=== PATIENT | female | born 1995 | race Caucasian/White ===

== ENCOUNTER 2018-11-15 21:37 | Outpatient (CLI) | payer MEDICAID ==
[2018-11-15 22:25] LABS: APPEARANCE,URINE CLEAR; BILIRUBIN,URINE NEGATIVE (NEGATIVE); COLOR,URINE YELLOW; GLUCOSE, URINE NEGATIVE (NEGATIVE); KETONES,URINE NEGATIVE (NEGATIVE); LEUKOCYTE ESTERASE,URINE NEGATIVE (NEGATIVE); NITRITE,URINE NEGATIVE (NEGATIVE); PROTEIN,URINE NEGATIVE (NEGATIVE); URINE SPECIFIC GRAVITY 1.025
[2018-11-15 22:45] LABS: URINE AMPHETAMINES SCREEN NEGATIVE; URINE BARBITURATES SCREEN NEGATIVE; URINE BENZODIAZEPINES SCREEN NEGATIVE; URINE COCAINE SCREEN NEGATIVE; URINE MARIJUANA (THC) SCREEN NEGATIVE; URINE METHADONE SCREEN NEGATIVE; URINE PHENCYCLIDINE SCREEN NEGATIVE
--- NOTE | 2018-11-16 00:01 | RADIOLOGY REPORT (SQ) ---
EXAM DESCRIPTION: US LIMITED COMPLETED DATE/TME: 11/15/2018 00:00 CLINICAL HISTORY: 23 years Female, Cramping 20w5d Comparison: None. TECHNIQUE/LIMITATION: Targeted OB sonogram for requested parameters only. FINDINGS: Single IUP Cardiac activity: 153-bpm. LVP: 5.3-cm Placenta: Posterior.. No demonstrated abruption or previa. Presentation: Breech. Cervical length: 3.9-cm. Closed appearance. IMPRESSION: Targeted OB sonogram for requested parameters
== END 2018-11-16 00:05 | disposition home or self-care (01) ==
LOC: LC 21:37
PROVIDERS: ATTEND Obstetrics & Gynecology
PROC: 4A1HXCZ Monitoring of Products of Conception, Cardiac Rate, External Approach (ICD-10-PCS; principal; 2018-11-15)
DX: O47.02 False labor before 37 completed weeks of gestation, second trimester (principal); Z3A.21 21 weeks gestation of pregnancy
CPT/HCPCS: 76815; 80307; 81001

== ENCOUNTER 2019-03-14 00:03 | Outpatient (CLI) | payer MEDICAID ==
[2019-03-14] MEDS ORDERED: ONDANSETRON 4 MG TAB.RAPDIS ONE (00:34)
[2019-03-14 00:45] LABS: APPEARANCE,URINE CLEAR; BILIRUBIN,URINE NEGATIVE (NEGATIVE); COLOR,URINE YELLOW; GLUCOSE, URINE NEGATIVE (NEGATIVE); KETONES,URINE 80 mg/dL (NEGATIVE); LEUKOCYTE ESTERASE,URINE SMALL (NEGATIVE); NITRITE,URINE NEGATIVE (NEGATIVE); PROTEIN,URINE NEGATIVE (NEGATIVE); URINE SPECIFIC GRAVITY 1.017
[2019-03-14 01:00] LABS: URINE AMPHETAMINES SCREEN NEGATIVE; URINE BARBITURATES SCREEN NEGATIVE; URINE BENZODIAZEPINES SCREEN NEGATIVE; URINE COCAINE SCREEN NEGATIVE; URINE MARIJUANA (THC) SCREEN NEGATIVE; URINE METHADONE SCREEN NEGATIVE; URINE PHENCYCLIDINE SCREEN NEGATIVE
--- NOTE | 2019-03-14 02:00 | Non Stress Test Report ---
Non Stress Test Datetime Report Generated by CPN: 03/14/2019 02:00 DEMOGRAPHIC EGA NST: 37.5 INDICATION Indication for Study (NST) Other: lc MONITORING Monitor Explained: Monitor Explained; Test Explained; Patient Verbalized Understanding Time on Monitor: 03/14/2019 00:22 Time off Monitor: 03/14/2019 01:35 NST Duration: 73 NST INTERVENTIONS NST Interventions: PO Hydration; Reposition Patient Physician Notified NST: Dr. Lao BABY A: [id number] BABY A Movement : Present Contraction Frequency : 1.5-3 FHR Baseline : 160 Accelerations : 15X15 Decelerations : None Variability : Moderate 6-25bpm NST Review: Meets Criteria for Reactive NST NST Review and Verified By : SAMANTHA Ni Results: Reactive NST REPORT Report Trigger: Send Report
== END 2019-03-14 01:35 | disposition home or self-care (01) ==
LOC: LC 00:03
PROVIDERS: ATTEND Obstetrics & Gynecology Gynecology
PROC: 4A1HXCZ Monitoring of Products of Conception, Cardiac Rate, External Approach (ICD-10-PCS; principal; 2019-03-14)
DX: O47.1 False labor at or after 37 completed weeks of gestation (principal); R11.2 Nausea with vomiting, unspecified; Z3A.37 37 weeks gestation of pregnancy
CPT/HCPCS: 59025; 81005; 80307; 84112; S0119

== ENCOUNTER 2019-03-31 01:51 | Inpatient (IN) | payer MEDICAID ==
[2019-03-31 02:48] LABS: APPEARANCE,URINE SLIGHTLY-CLOUDY; BILIRUBIN,URINE NEGATIVE (NEGATIVE); COLOR,URINE YELLOW; GLUCOSE, URINE NEGATIVE (NEGATIVE); KETONES,URINE NEGATIVE (NEGATIVE); LEUKOCYTE ESTERASE,URINE SMALL (NEGATIVE); NITRITE,URINE NEGATIVE (NEGATIVE); PROTEIN,URINE 30 mg/dL (NEGATIVE); URINE SPECIFIC GRAVITY 1.024
[2019-03-31] MEDS ORDERED: RINGERS SOLUTION,LACTATED 1,000 ML IV ONE (02:57)
[2019-03-31] MEDS ORDERED: RINGERS SOLUTION,LACTATED 1,000 ML IV PRN (02:57)
[2019-03-31] MEDS ORDERED: OXYTOCIN/NORMAL SALINE 20 UNIT/1,000 ML RTUINJ IV PRN ×2 (02:58→17:15)
[2019-03-31 03:03] LABS: URINE AMPHETAMINES SCREEN NEGATIVE; URINE BARBITURATES SCREEN NEGATIVE; URINE BENZODIAZEPINES SCREEN NEGATIVE; URINE COCAINE SCREEN NEGATIVE; URINE MARIJUANA (THC) SCREEN NEGATIVE; URINE METHADONE SCREEN NEGATIVE; URINE PHENCYCLIDINE SCREEN NEGATIVE
[2019-03-31 03:33] LABS: ABSOLUTE EOSINOPHILS # (AUTO) 0.2 10^3/uL (0.0-0.6); ABSOLUTE LYMPHOCYTES (AUTO) 1.9 10^3/uL (0.5-4.7); ABSOLUTE MONOCYTES (AUTO) 0.9 10^3/uL (0.1-1.4); ABSOLUTE NEUT (AUTO) 6.6 10^3/uL (1.7-8.2); BASOPHILS % (AUTO) 0.5 % (0-2); EOSINOPHILS % (AUTO) 2.4 % (0-6); HEMATOCRIT 28.6 % (36.0-47.0); HEMOGLOBIN 9.4 g/dL (12.0-15.5); LYMPHOCYTES % (AUTO) 19.3 % (13-45); MEAN CORPUSCULAR HEMOGLOBIN 24.1 pg (27.0-33.4); MEAN CORPUSCULAR HGB CONC 32.9 g/dL (32.0-36.0); MEAN CORPUSCULAR VOLUME 73 fl (80-97); MONOCYTES % (AUTO) 9.1 % (3-13); PLATELET COUNT 219 10^3/uL (150-450); RED CELL DISTRIBUTION WIDTH 16.6 % (11.5-14.0); SEGMENTED NEUTROPHILS % (AUTO) 68.7 % (42-78); TOTAL CELLS COUNTED % (AUTO) 100 %; WHITE BLOOD COUNT 9.7 10^3/uL (4.0-10.5)
[2019-03-31] MEDS ORDERED: OXYTOCIN 10 UNIT/ML VIAL ONE ×2 (05:57→12:40)
[2019-03-31] MEDS ORDERED: MISOPROSTOL 0.2 MG TABLET ONE ×2 (05:58→12:40)
[2019-03-31] MEDS ORDERED: LIDOCAINE 1% INJ-PF (10 MG/ML) 30 ML SDV ONE ×2 (05:58→12:41)
[2019-03-31] MEDS ORDERED: OXYTOCIN/NORMAL SALINE 0 UNIT/0 ML RTUINJ ONE (05:58)
--- NOTE | 2019-03-31 06:34 | Admission Physical ---
Datetime Report Generated by CPN: 03/31/2019 06:33 CURRENT ADMISSION Chief Complaint: Suspected Ruptured Membranes Chief Complaint Other: "my water broke at 12:30 am" Indication for Induction: Not Applicable Admit Impression : Term, Intrauterine ; No Active Labor; Ruptured Membranes Admit Plan: Admit to Unit; Initiate Labor Augmentation Protocol ALLERGIES Medication Allergies: No Medication Allergies: No Known Allergies (03/14/2019) Latex: No Latex Allergies OBSTETRICAL HISTORY EDC: 03/30/2019 00:00 : 2 Para: 0 Cesareans: 0 Gestational Diabetes: No Rh Sensitization: No Incompetent Cervix: No TIANNA: No Infertility: No ART Treatment: No Uterine Anomaly: No IUGR: No Hx Previous C/S: No Macrosomia: No Hx Loss/Stillborn: No PIH: No Hx : No Placenta Previa/Abruption: No Depression/PP Depression: No PTL/PROM: No Post Hemorrhage: No Current Procedures: Ultrasound Obstetrical History Comments: G1- 5 weeks, miscarriage in Dec 18 G2-Current SEE RECORDS Alcohol: No Marijuana : No Cocaine: No Other Illicit Drugs: No Cigarettes: Former Smoker. [id number] MEDICAL HISTORY Diabetes: No Blood Transfusion: No Pulmonary Disease (Asthma, TB): No Breast Disease: No Hypertension: No Fabric Stretcher Surgery: No Heart Disease: No Hosp/Surgery: No Autoimmune Disorder: No Anesthetic Complications: No Kidney Disease: No Abnormal Pap Smear: No Neuro/Epilepsy: No Psychiatric Disorders: No Other Medical Diseases: No Hepatitis/Liver Disease: No Significant Family History: No Varicosities/Phlebitis: No Trauma/Violence : No Thyroid Dysfunction: No INFECTIOUS HISTORY Gonorrhea: No Genital Herpes: No Chlamydia: Yes Tuberculosis: No Syphilis: No Hepatitis: No HIV/AIDS Exposure: No Rash or Viral Illness: No HPV: No PHYSICAL EXAM General: Normal HEENT: Normal Neurologic: Normal Thyroid: Normal Heart: Normal Lungs: Normal Breast: Normal Back: Normal Abdomen: Normal Genitourinary Exam: Normal Extremities: Normal DTRs: Normal Pelvic Type: Adequate Vital Signs: Reviewed; Within Normal Limits VAGINAL EXAM Dilatation: 2-3 Effacement: 50 Station: -2 MEMBRANES Membranes: Ruptured Amniotic Fluid Color: Bloody FETUS A EGA: 40.1 Monitoring: External US FHR- Baseline: 120s Accelerations: 15X15 Decelerations: None FHR Category: Category I Admit Comment: presents to L_D c/o ruptire of membranes at 0030. She reports good movement. She is GBS Neg. She has no other co-morbidities. PLANS FOR LABOR AND DELIVERY Labor and Delivery: None Pain Management: Epidural Feeding Preference: Breast Benefit of Breast Feed Discussed: Yes Circumcision: Yes INFORMED CONSENT Signature: with User ID: [email or web address]
[2019-03-31] MEDS ORDERED: EPHEDRINE SULFATE INJ 50 MG/1 ML AMPULE ONE (12:36)
[2019-03-31] MEDS ORDERED: FENTANYL/BUPIVACAINE/NS/PF 300 MCG/150 ML RTUINJ EPI ONE (12:37)
[2019-03-31] MEDS ORDERED: BUPIVACAINE HCL 0.25 % INJ/PF (2.5 MG/1 ML) 30 ML VIAL ONE (12:37)
[2019-03-31] MEDS ORDERED: OXYTOCIN/NORMAL SALINE 20 UNIT/1,000 ML RTUINJ ONE (12:41)
[2019-03-31] MEDS ORDERED: GLYCERIN/WITCH HAZEL LEAF 1 EACH MED..WIPE TP PRN (17:15)
[2019-03-31] MEDS ORDERED: BENZOCAINE/MENTHOL AEROSOL SPRAY 56 ML TOP PRN (17:15)
[2019-03-31] MEDS ORDERED: ZOLPIDEM TARTRATE 5 MG TABLET PO PRN (17:15)
[2019-03-31] MEDS ORDERED: PSEUDOEPHEDRINE HCL 30 MG TABLET PO PRN (17:15)
[2019-03-31] MEDS ORDERED: PROMETHAZINE HCL 25 MG SUPP.RECT PR PRN (17:15)
[2019-03-31] MEDS ORDERED: PROMETHAZINE HCL 25 MG TABLET PO PRN (17:15)
[2019-03-31] MEDS ORDERED: ACETAMINOPHEN 650 MG SUPP.RECT PR PRN (17:15)
[2019-03-31] MEDS ORDERED: PROMETHAZINE HCL INJ 25 MG/1 ML VIAL IV PRN (17:15)
[2019-03-31] MEDS ORDERED: MEASLES,MUMPS&RUBELLA VACC/PF 0.5 ML VIAL SUBCUT PRN (17:15)
[2019-03-31] MEDS ORDERED: DIBUCAINE 1% OINTMENT 28 GM TP PRN (17:15)
[2019-03-31] MEDS ORDERED: MAGNESIUM HYDROXIDE SUSP 30 ML UDCUP PO PRN (17:15)
[2019-03-31] MEDS ORDERED: NA PHOS,M-B/NA PHOS,DI-BA (ADULT) 133 ML ENEMA PR PRN (17:15)
[2019-03-31] MEDS ORDERED: ACETAMINOPHEN WITH CODEINE #3 TABLET PO PRN ×2 (17:15)
[2019-03-31] MEDS ORDERED: DIPH/PERTUSS(ACELL)/TETANUS VAC/PF 0.5 ML SYR (>=10YO) IM PRN (17:15)
[2019-03-31] MEDS ORDERED: DIPHENHYDRAMINE HCL 25 MG CAPSULE PO PRN (17:15)
[2019-03-31] MEDS ORDERED: FAMOTIDINE 20 MG TABLET ONE (21:41)
[2019-03-31] MEDS: DOCUSATE SODIUM 100 MG CAPSULE PO SCH (21:55)
[2019-03-31] MEDS: FERROUS SULFATE 325 MG TABLET PO SCH (21:55)
[2019-03-31] MEDS: IBUPROFEN 800 MG TABLET PO SCH (21:55)
[2019-03-31] MEDS: FAMOTIDINE 20 MG TABLET PO SCH (22:08)
[2019-04-01] MEDS: IBUPROFEN 800 MG TABLET PO SCH ×3 (05:37→18:12)
[2019-04-01 06:59] LABS: HEMATOCRIT 23.4 % (36.0-47.0); MEAN CORPUSCULAR HEMOGLOBIN 23.8 pg (27.0-33.4); MEAN CORPUSCULAR HGB CONC 32.8 g/dL (32.0-36.0); MEAN CORPUSCULAR VOLUME 73 fl (80-97); PLATELET COUNT 195 10^3/uL (150-450); RED BLOOD COUNT 3.22 10^6/uL (3.72-5.28); RED CELL DISTRIBUTION WIDTH 16.5 % (11.5-14.0); WHITE BLOOD COUNT 13.7 10^3/uL (4.0-10.5)
[2019-04-01 07:01] LABS: HEMOGLOBIN 7.7 g/dL (12.0-15.5)
--- NOTE | 2019-04-01 09:32 | PDOC PROGRESS REPORT ---
Subjective-OB Progress Note for:: 04/01/19 Subjective: reports bleeding slowing, pain controlled with current meds. denies sx of anemia except felt dizzy when she stood up yesterday. offered iron infusion-declines. instructed to report headache, ringing in ears, dizziness, feeling like she is going to pass out, extreme fatigue. pt voiced understanding. Physical Exam (OB) Vital Signs: Intake & Output 03/31/19 04/01/19 04/02/19 06:59 06:59 06:59 Weight 68.8 kg - Abdomen Stool: Yes Fundal Description: Midline Fundal Height: u/u - u/2 - Abdominal Distension: No distension Tenderness: Nontender - Extremities Lower extremities: Genoveva's sign - neg Calf: Normal, Nontender Objective-Diagnostic Laboratory: 04/01/19 06:30 04/01/19 06:30 WBC 13.7 H RBC 3.22 L Hgb 7.7 L Hct 23.4 L MCV 73 L MCH 23.8 L MCHC 32.8 RDW 16.5 H Plt Count 195 Assessment and Plan(PN) - Assessment and Plan (1) Normal vaginal delivery Is this a current diagnosis for this admission?: Yes (2) Anemia due to acute blood loss Is this a current diagnosis for this admission?: Yes (3) Chlamydia infection during Is this a current diagnosis for this admission?: Yes - Time Spent with Patient Time with patient: Less than 15 minutes Medications reviewed and adjusted accordingly: Yes - Disposition Anticipated Discharge: Home Within: within 24 hours
[2019-04-01] MEDS ORDERED: SENNOSIDES/DOCUSATE 8.6-50 MG 1 EACH TABLET ONE (10:18)
[2019-04-01] MEDS ORDERED: FERROUS SULFATE 325 MG TABLET PO ONE (10:18)
[2019-04-01] MEDS ORDERED: DOCUSATE SODIUM 100 MG CAPSULE ONE (10:18)
[2019-04-01] MEDS ORDERED: IBUPROFEN 800 MG TABLET ONE (10:18)
[2019-04-01] MEDS ORDERED: FAMOTIDINE 20 MG TABLET ONE (10:22)
[2019-04-01] MEDS: PRENATAL VITAMIN W DHA CAPSULE PO SCH (10:27)
[2019-04-01] MEDS: SENNOSIDES/DOCUSATE 8.6-50 MG 1 EACH TABLET PO SCH (10:27)
[2019-04-01] MEDS: FERROUS SULFATE 325 MG TABLET PO SCH ×2 (10:27→18:12)
[2019-04-01] MEDS: FAMOTIDINE 20 MG TABLET PO SCH ×2 (10:28→21:50)
[2019-04-01] MEDS: DOCUSATE SODIUM 100 MG CAPSULE PO SCH ×2 (10:28→18:12)
--- NOTE | 2019-04-01 13:35 | Delivery Summary ---
Del Sum A-C Datetime Report Generated by CPN: 04/01/2019 13:35 DELIVERY PERSONNEL DELIVERY PERSONNEL: [id number] Delivery Doctor:: Ricco Lewis MD Labor and Delivery Nurse:: Angelica Trotter RN Nursery Nurse:: Albina Mario RN Square Shear Operator/SERVICE CONTROL OPERATOR: Milagros Cox, ST [employer] Operator/SERVICE CONTROL OPERATOR: Katya Schreiber Patience, PATTERNMAKER PRESSURE CAST MATERNAL INFORMATION Delivery Anesthesia: Epidural Medications After Delivery: Pitocin Bolus-Please Comment Meds After Delivery Comment: pitocin 20 units in 1 L NS bolusing per order Estimated Blood Loss (ml): 100 Delivery QBL: 0 Maternal Complications: None LABOR SUMMARY EDC: 03/30/2019 00:00 No. Babies in Womb: 1 Attempted: No Labor Anesthesia: Epidural LABOR INFORMATION Reason for Induction: Not Applicable Onset of Labor: 03/31/2019 06:24 Complete Dilatation: 03/31/2019 16:45 Oxytocin: Augmentation Group B Beta Strep: negative Antibiotics # of Doses: 0 Antibiotics Time of Last Dose: n/a Name of Antibiotic Given: n/a Steroids Given: None Reason Steroids Not Administered: Not Applicable MEMBRANES Membranes Rupture Method: Artificial Rupture of Membranes: 03/31/2019 00:30 Length of Rupture (hr): 17.27 Amniotic Fluid Color: Clear Amniotic Fluid Amount: Small Amniotic Fluid Odor: None STAGES OF LABOR Stage 1 hr: 10 Stage 1 min: 21 Stage 2 hr: 1 Stage 2 min: 1 Stage 3 hr: 0 Stage 3 min: 3 Total Time in Labor hr: 11 Total Time in Labor min: 25 VAGINAL DELIVERY Episiotomy: None Laceration #1: Vaginal Laceration Extension #1: N/A Laceration #2: Vaginal Laceration Extension #2: N/A Laceration #3: None Laceration Extension #3: N/A Laceration Repair: Yes Laceration Repair Note: The patient had bilateral labial lacerations each repaired with 3-0 chromic suture. Sponge Count Correct: Vaginal Sweep Performed Sharps Count Correct: Yes CSECTION DELIVERY Primary Indication: N/A Secondary Indication: N/A CSection Incidence: N/A Labor: N/A Elective: N/A CSection Incision: N/A BABY A INFORMATION Delivery Date/Time: 03/31/2019 17:46 Method of Delivery: Vaginal Born in Route : No : N/A Forceps: N/A Vacuum Extraction: N/A Shoulder Dystocia : No PRESENTATION/POSITION BABY A Presentation: Cephalic Cephalic Presentation: Vertex Vertex Position: Right Occipital Anterior Breech Presentation: N/A PLACENTA INFORMATION BABY A Placenta Delivery Time : 03/31/2019 17:49 Placenta Method of Delivery: Spontaneous Placenta Status: Delivered SCORES BABY A Heart Rate 1 min: >100 bpm Resp Effort 1 min: Good Cry Reflex Irritability 1 min: No Response Muscle Tone 1 min: Flaccid Color 1 min: Body [place], Extremities Blue Resuscitation Effort 1 min: Tactile Stimulation SCORE 1 MIN: 5 Heart Rate 5 min: >100 bpm Resp Effort 5 min: Good Cry Reflex Irritability 5 min: Grim[place] Muscle Tone 5 min: Flaccid Color 5 min: Body [place], Extremities Blue Resuscitation Effort 5 min: Tactile Stimulation SCORE 5 MIN: 6 Heart Rate 10 min: >100 bpm Resp Effort 10 min: [place] Reflex Irritability 10 min: [place]ace Muscle Tone 10 min: Some Flexion of Extremities Color 10 min: Body [place], Extremities Blue Resuscitation Effort 10 min: Tactile Stimulation; PPV/NCPAP SCORE 10 MIN: 7 INFORMATION BABY A Gestational Age at Delivery: 40.1 Gestational Status: Full Term- 39- 40.6 Weeks Outcome : Liveborn Condition : Stable Sex: Male IDENTIFICATION BABY A Verification Date/Time: 03/31/2019 17:46 ID Band Number: [id number] Mother's Name Verified: Yes Infant RN Verifying Infant: Tara Shelbi CORD INFORMATION BABY A No. Cord Vessels: 3 Nuchal Cord : Around Neck x1, Loose Infant Suction: Mouth; Nose ASSESSMENT BABY A Physical Findings at Delivery: Within Normal Limits Respirations: Grunting BABY B INFORMATION : N/A SIGNATURES Signature: with User ID: [email or web address]
[2019-04-02] MEDS: IBUPROFEN 800 MG TABLET PO SCH ×2 (01:49→10:04)
[2019-04-02 08:12] VITALS: BP 116/73
[2019-04-02 08:21] LABS: ABSOLUTE BASOPHILS # (AUTO) 0.1 10^3/uL (0.0-0.2); ABSOLUTE EOSINOPHILS # (AUTO) 0.3 10^3/uL (0.0-0.6); ABSOLUTE LYMPHOCYTES (AUTO) 1.8 10^3/uL (0.5-4.7); ABSOLUTE MONOCYTES (AUTO) 0.7 10^3/uL (0.1-1.4); ABSOLUTE NEUT (AUTO) 6.4 10^3/uL (1.7-8.2); BASOPHILS % (AUTO) 0.7 % (0-2); EOSINOPHILS % (AUTO) 3.5 % (0-6); HEMATOCRIT 22.1 % (36.0-47.0); LYMPHOCYTES % (AUTO) 19.5 % (13-45); MEAN CORPUSCULAR HEMOGLOBIN 24.1 pg (27.0-33.4); MEAN CORPUSCULAR HGB CONC 32.7 g/dL (32.0-36.0); MEAN CORPUSCULAR VOLUME 74 fl (80-97); MONOCYTES % (AUTO) 7.2 % (3-13); PLATELET COUNT 174 10^3/uL (150-450); RED CELL DISTRIBUTION WIDTH 17.1 % (11.5-14.0); SEGMENTED NEUTROPHILS % (AUTO) 69.1 % (42-78); TOTAL CELLS COUNTED % (AUTO) 100 %; WHITE BLOOD COUNT 9.2 10^3/uL (4.0-10.5)
[2019-04-02 08:30] LABS: HEMOGLOBIN 7.2 g/dL (12.0-15.5)
--- NOTE | 2019-04-02 09:15 | PDOC DISCHARGE SUMMARY ---
Impression - Admit/DC Date/PCP Admission Date/Primary Care Provider: 03/31/19 02:54 KHUSHI HILLIARD MD Discharge Date: 04/02/19 - Discharge Diagnosis (1) Normal vaginal delivery Is this a current diagnosis for this admission?: Yes (2) Anemia due to acute blood loss Is this a current diagnosis for this admission?: Yes (3) Chlamydia infection during Is this a current diagnosis for this admission?: Yes - Additional Information Discharge Diet: Regular Discharge Activity: Balance Activity w/Rest, Pelvic Rest Referrals: KHUSHI HILLIARD MD [Primary Care Provider] - Prescriptions: Ibuprofen [Motrin 800 mg Tablet] 800 mg PO Q8HP PRN #60 tablet PRN Reason: Home Medications: 95/Iron Fum/Folic/Dha [ + Dha Combo Pack] 1 cap PO DAILY 11/15/18 Ferrous Sulfate [Ferosul] 325 mg PO BID 03/31/19 Ibuprofen [Motrin 800 mg Tablet] 800 mg PO Q8HP PRN #60 tablet 04/02/19 HPI Gestational Age: 40+1 Reason(s) for Admission: Induction of Labor, PROM Procedures: NST Intrapartum Procedure(s): Spontaneous Vaginal Delivery Complication(s): Laceration-Vaginal Laceration-Degree: 1st Results Laboratory Results: WBC 9.2 10^3/uL (4.0-10.5) 04/02/19 07:55 RBC 3.00 10^6/uL (3.72-5.28) L 04/02/19 07:55 Hgb 7.2 g/dL (12.0-15.5) L 04/02/19 07:55 Hct 22.1 % (36.0-47.0) L 04/02/19 07:55 MCV 74 fl (80-97) L 04/02/19 07:55 MCH 24.1 pg (27.0-33.4) L 04/02/19 07:55 MCHC 32.7 g/dL (32.0-36.0) 04/02/19 07:55 RDW 17.1 % (11.5-14.0) H 04/02/19 07:55 Plt Count 174 10^3/uL (150-450) 04/02/19 07:55 Lymph % (Auto) 19.5 % (13-45) 04/02/19 07:55 [place] % (Auto) 7.2 % (3-13) 04/02/19 07:55 Eos % (Auto) 3.5 % (0-6) 04/02/19 07:55 Baso % (Auto) 0.7 % (0-2) 04/02/19 07:55 Absolute Neuts (auto) 6.4 10^3/uL (1.7-8.2) 04/02/19 07:55 Absolute Lymphs (auto) 1.8 10^3/uL (0.5-4.7) 04/02/19 07:55 Absolute Monos (auto) 0.7 10^3/uL (0.1-1.4) 04/02/19 07:55 Absolute Eos (auto) 0.3 10^3/uL (0.0-0.6) 04/02/19 07:55 Absolute Basos (auto) 0.1 10^3/uL (0.0-0.2) 04/02/19 07:55 Seg Neutrophils % 69.1 % (42-78) 04/02/19 07:55 Urine Color YELLOW 03/31/19 02:05 Urine Appearance SLIGHTLY-CLOUDY 03/31/19 02:05 Urine pH 6.0 (5.0-9.0) 03/31/19 02:05 Ur Specific [place] 1.024 03/31/19 02:05 Urine Protein 30 mg/dL (NEGATIVE) H 03/31/19 02:05 Urine Glucose (UA) NEGATIVE mg/dL (NEGATIVE) 03/31/19 02:05 Urine Ketones NEGATIVE mg/dL (NEGATIVE) 03/31/19 02:05 Urine Blood NEGATIVE (NEGATIVE) 03/31/19 02:05 Urine Nitrite NEGATIVE (NEGATIVE) 03/31/19 02:05 Urine Bilirubin NEGATIVE (NEGATIVE) 03/31/19 02:05 Urine Urobilinogen 2.0 mg/dL (<2.0) H 03/31/19 02:05 Ur Leukocyte Esterase SMALL (NEGATIVE) H 03/31/19 02:05 Urine Ascorbic Acid NEGATIVE (NEGATIVE) 03/31/19 02:05 Membranes Rupture POSITIVE (NEGATIVE) H 03/31/19 02:07 Urine Opiates Screen NEGATIVE 03/31/19 02:05 Urine Methadone Screen NEGATIVE 03/31/19 02:05 Ur Barbiturates Screen NEGATIVE 03/31/19 02:05 Ur Phencyclidine Scrn NEGATIVE 03/31/19 02:05 Ur Amphetamines Screen NEGATIVE 03/31/19 02:05 U Benzodiazepines Scrn NEGATIVE 03/31/19 02:05 Urine Cocaine Screen NEGATIVE 03/31/19 02:05 U Marijuana (THC) Screen NEGATIVE 03/31/19 02:05 RPR NONREACTIVE (NONREACTIVE) 03/31/19 03:11 Blood Type A POSITIVE 03/31/19 03:11 Antibody Screen NEGATIVE 03/31/19 03:11 Plan Plan of Treatment: follow up at [facility] in 4 weeks for post exam
[2019-04-02] MEDS: DOCUSATE SODIUM 100 MG CAPSULE PO SCH (10:03)
[2019-04-02] MEDS: SENNOSIDES/DOCUSATE 8.6-50 MG 1 EACH TABLET PO SCH (10:03)
[2019-04-02] MEDS: PRENATAL VITAMIN W DHA CAPSULE PO SCH (10:04)
[2019-04-02] MEDS: FERROUS SULFATE 325 MG TABLET PO SCH (10:04)
[2019-04-02] MEDS: FAMOTIDINE 20 MG TABLET PO SCH (10:04)
== END 2019-04-02 14:28 | disposition home or self-care (01) | DRG 806 ==
LOC: LC 01:51 → LR 02:54 → 2N 04-01 13:50
PROVIDERS: ADMIT Obstetrics & Gynecology; ATTEND Obstetrics & Gynecology
PROC: 10E0XZZ Delivery of Products of Conception, External Approach (ICD-10-PCS; principal; 2019-03-31)
PROC: 0KQM0ZZ Repair Perineum Muscle, Open Approach (ICD-10-PCS; 2019-03-31)
DX: O70.1 Second degree perineal laceration during delivery (principal); D62 Acute posthemorrhagic anemia; Z37.0 Single live birth; Z3A.40 40 weeks gestation of pregnancy; O69.81X0 Labor and delivery complicated by cord around neck, without compression, not applicable or unspecified; Z86.19 Personal history of other infectious and parasitic diseases; O99.02 Anemia complicating childbirth; Z87.891 Personal history of nicotine dependence
CPT/HCPCS: 36415; 80307; 81005; 84112; 85025; 85027; 86592; 86850; 86900; 86901; J2590; J3010; J3490